=== PATIENT | male | born 2000 | race Caucasian/White ===

== ENCOUNTER 2025-08-05 09:53 | Emergency (ER) | payer OTHER ==
[~2025-08-05] VITALS: Ht 190.5 cm; Wt 97.5 kg
[2025-08-05] MEDS ORDERED: KETOROLAC TROMETHAMINE 15 MG/ML VIAL ONE (10:30)
[2025-08-05] MEDS: IV NS 0.9% 1,000 ML BAG IV ONE (10:37)
[2025-08-05] MEDS: KETOROLAC TROMETHAMINE 15 MG/ML VIAL IV ONE (10:38)
[2025-08-05 10:42] LABS: APPEARANCE,URINE CLEAR (CLEAR); BLOOD, URINE TRACE-INTA Ery/uL (NEGATIVE); LEUKOCYTE ESTERASE ,URINE NEGATIVE (NEGATIVE); NITRITE, URINE NEGATIVE (NEGATIVE); UGLUCOSE NEGATIVE (NEGATIVE)
[2025-08-05 10:44] LABS: PLATELET COUNT (AUTO) 221 K/uL (150-450); RED BLOOD CELL COUNT(AUTO) 4.94 MIL/uL (4.5-6.0); RED CELL DISTRIBUTION WIDTH 13.5 % (11.5-15.0); WHITE BLOOD COUNT (AUTO) 4.2 K/uL (4.3-11.0)
[2025-08-05 10:51] LABS: CALCIUM, SERUM 9.3 mg/dL (8.5-10.1); CREATININE 1.0 mg/dL (0.6-1.3); SODIUM SERUM 140.0 mmol/L (136-145); UREA NITROGEN, BLOOD 10.0 mg/dL (7-18)
[2025-08-05 11:09] LABS: ASPARTATE AMINOTRANSFERASE 31.0 U/L (15-37); TOTAL PROTEIN, SERUM 7.5 g/dL (6.4-8.2)
[2025-08-05 11:19] LABS: ADD URINE CULTURE NO; SQUAMOUS EPITHELIAL CELL,UR None Seen /HPF (None Seen)
[2025-08-05] MEDS ORDERED: ONDA4TAB5 PO (13:56)
[2025-08-05] MEDS ORDERED: IBUP-1490 PO (13:56)
[2025-08-05] MEDS ORDERED: OXYC-128 PO (13:56)
[2025-08-05] MEDS ORDERED: TAMS-12 PO (13:56)
[2025-08-05 14:05] VITALS: BP 132/76; TEMP 98; O2SAT 99
[2025-08-06] MEDS ORDERED: QUET100T PO (15:50)
[2025-08-06] MEDS ORDERED: CHOL200059 PO (15:50)
[2025-08-06] MEDS ORDERED: MIRT-91 PO (15:50)
== END 2025-08-05 14:06 | disposition home or self-care (01) ==
LOC: ER 09:55
DX: N13.2 Hydronephrosis with renal and ureteral calculous obstruction (principal); F31.9 Bipolar disorder, unspecified; Z87.442 Personal history of urinary calculi
CPT/HCPCS: 99285; 74176; 96374; 96361; 85025; 80048; 83690; 80076; 81001; 36415; J1885; J7030

== ENCOUNTER 2025-08-06 12:22 | Inpatient (IN) | payer OTHER ==
[~2025-08-06] VITALS: Ht 183.6 cm; Wt 98.9 kg
[~2025-08-06 12:22] MED LIST: IBUP-1490 PO; ONDA4TAB5 PO; OXYC-128 PO; TAMS-12 PO
[2025-08-06] MEDS ORDERED: KETOROLAC TROMETHAMINE 15 MG/ML VIAL ONE (13:26)
[2025-08-06] MEDS: IV NS 0.9% 1,000 ML BAG IV ONE (13:33)
[2025-08-06] MEDS: KETOROLAC TROMETHAMINE 15 MG/ML VIAL IV ONE (13:35)
[2025-08-06 13:42] LABS: PLATELET COUNT (AUTO) 238 K/uL (150-450); RED BLOOD CELL COUNT(AUTO) 4.53 MIL/uL (4.5-6.0); RED CELL DISTRIBUTION WIDTH 13.3 % (11.5-15.0); WHITE BLOOD COUNT (AUTO) 12.3 K/uL (4.3-11.0)
[2025-08-06 13:50] LABS: CALCIUM, SERUM 9.1 mg/dL (8.5-10.1); CREATININE 1.2 mg/dL (0.6-1.3); SODIUM SERUM 131.0 mmol/L (136-145); UREA NITROGEN, BLOOD 12.0 mg/dL (7-18)
[2025-08-06 14:03] LABS: ASPARTATE AMINOTRANSFERASE 33.0 U/L (15-37); TOTAL PROTEIN, SERUM 7.3 g/dL (6.4-8.2)
[2025-08-06] MEDS ORDERED: TAMSULOSIN 0.4 MG CAP.SR.24H ONE ×2 (14:39→17:06)
[2025-08-06] MEDS ORDERED: ONDANSETRON HCL/PF 4 MG/2 ML VIAL ONE (14:39)
[2025-08-06] MEDS ORDERED: HYDROMORPHONE 1 MG/1 ML DISP.SYRIN ONE ×2 (14:39→19:19)
[2025-08-06 14:52] LABS: APPEARANCE,URINE CLEAR (CLEAR); BLOOD, URINE 2+ Ery/uL (NEGATIVE); LEUKOCYTE ESTERASE ,URINE NEGATIVE (NEGATIVE); NITRITE, URINE NEGATIVE (NEGATIVE); UGLUCOSE NEGATIVE (NEGATIVE)
[2025-08-06] MEDS: HYDROMORPHONE INJ 2 MG/ML DISP.SYRIN IV ONE (14:58)
[2025-08-06] MEDS: TAMSULOSIN 0.4 MG CAP.SR.24H PO ONE ×2 (15:00→16:00)
[2025-08-06] MEDS: ONDANSETRON HCL/PF 4 MG/2 ML VIAL IVP ONE (15:00)
[2025-08-06 15:06] LABS: ADD URINE CULTURE NO
[2025-08-06] MEDS ORDERED: CHOL200059 PO (15:50)
[2025-08-06] MEDS ORDERED: MIRT-91 PO (15:50)
[2025-08-06] MEDS ORDERED: QUET100T PO (15:50)
[2025-08-06] MEDS ORDERED: MAG HYDROX/AL HYDROX/SIMETH 30 ML UDC PO PRN (16:00)
[2025-08-06] MEDS ORDERED: ZOLPIDEM TARTRATE 5 MG TABLET PO PRN (16:00)
[2025-08-06] MEDS ORDERED: ACETAMINOPHEN 325 MG TABLET PO PRN (16:00)
[2025-08-06] MEDS ORDERED: Z GUARD REMEDY 4 OZ OINT TP PRN (16:00)
[2025-08-06] MEDS ORDERED: ONDANSETRON HCL/PF 4 MG/2 ML VIAL IVP PRN (16:00)
[2025-08-06] MEDS ORDERED: KETOROLAC TROMETHAMINE 15 MG/ML VIAL IV PRN (16:00)
[2025-08-06] MEDS ORDERED: MAGNESIUM HYDROXIDE 30 ML UDC PO PRN (16:00)
[2025-08-06] MEDS: HYDROMORPHONE 1 MG/1 ML DISP.SYRIN IV PRN (19:22)
[2025-08-06 20:00] VITALS: BP 128/76; TEMP 98.2; O2SAT 99
[2025-08-06] MEDS: IV NS 0.9% 1,000 ML IV PRN (21:27)
[2025-08-06] MEDS: MIRTAZAPINE 15 MG TABLET PO SCH ×2 (21:44→22:00)
[2025-08-06] MEDS: QUETIAPINE FUMARATE 100 MG TABLET PO SCH ×2 (21:45→22:00)
[2025-08-07] MEDS: HYDROCODONE/APAP 10/325MG TABLET PO PRN (02:18)
[2025-08-07 04:00] VITALS: BP 122/63; TEMP 98.1; O2SAT 99
[2025-08-07 06:18] LABS: PLATELET COUNT (AUTO) 204 K/uL (150-450); RED BLOOD CELL COUNT(AUTO) 4.39 MIL/uL (4.5-6.0); RED CELL DISTRIBUTION WIDTH 13.2 % (11.5-15.0); WHITE BLOOD COUNT (AUTO) 6.4 K/uL (4.3-11.0)
[2025-08-07 06:32] LABS: CALCIUM, SERUM 9.0 mg/dL (8.5-10.1); CREATININE 1.4 mg/dL (0.6-1.3); PHOSPHORUS 3.9 mg/dL (2.5-4.9); SODIUM SERUM 141.0 mmol/L (136-145); UREA NITROGEN, BLOOD 11.0 mg/dL (7-18)
[2025-08-07 08:00] VITALS: BP 104/70; TEMP 98.8; O2SAT 98
[2025-08-07] MEDS: PANTOPRAZOLE 40 MG TABLET.DR PO SCH (08:49)
[2025-08-07 12:00] VITALS: BP 104/70; TEMP 98.8; O2SAT 98
[2025-08-07 14:02] LABS: APPEARANCE,URINE CLEAR (CLEAR); BLOOD, URINE 3+ Ery/uL (NEGATIVE); LEUKOCYTE ESTERASE ,URINE NEGATIVE (NEGATIVE); NITRITE, URINE NEGATIVE (NEGATIVE); UGLUCOSE NEGATIVE (NEGATIVE)
[2025-08-07 14:09] LABS: CREATININE, URINE 25.7 MG/DL (30.0-125.0); URINE SODIUM, RANDOM 57.0 mmol/l (40-220); URINE TOTAL PROTEIN 10.2 mg/dL (0-11.9)
[2025-08-07 15:13] LABS: ADD URINE CULTURE NO; SQUAMOUS EPITHELIAL CELL,UR None Seen /HPF (None Seen)
[2025-08-07 16:00] VITALS: BP 124/78; TEMP 98.4; O2SAT 100
[2025-08-07 20:00] VITALS: BP 118/64; TEMP 97.5; O2SAT 100
[2025-08-08 04:00] VITALS: BP 128/58; TEMP 97.5; O2SAT 100
[2025-08-08 06:54] LABS: PLATELET COUNT (AUTO) 223 K/uL (150-450); RED BLOOD CELL COUNT(AUTO) 4.56 MIL/uL (4.5-6.0); RED CELL DISTRIBUTION WIDTH 13.5 % (11.5-15.0); WHITE BLOOD COUNT (AUTO) 4.9 K/uL (4.3-11.0)
[2025-08-08 06:55] LABS: CREATINE KINASE, TOTAL 141.0 U/L (39-308)
[2025-08-08 06:56] LABS: ASPARTATE AMINOTRANSFERASE 23.0 U/L (15-37); CALCIUM, SERUM 9.2 mg/dL (8.5-10.1); CREATININE 0.9 mg/dL (0.6-1.3); PHOSPHORUS 3.7 mg/dL (2.5-4.9); SODIUM SERUM 142.0 mmol/L (136-145); TOTAL PROTEIN, SERUM 6.8 g/dL (6.4-8.2); UREA NITROGEN, BLOOD 10.0 mg/dL (7-18)
[2025-08-08 08:00] VITALS: BP 117/78; TEMP 98.2; O2SAT 99
[2025-08-08 12:00] VITALS: BP 117/78; TEMP 98.2; O2SAT 99
[2025-08-08] MEDS: FLU VACC 2025-26(6MOS UP) 0.5 ML SYRINGE IM ONE (14:04)
== END 2025-08-08 16:58 | disposition home or self-care (01) | DRG 694 ==
LOC: ER 12:25 → MEDSG1 19:11
PROVIDERS: ADMIT Nurse Practitioner Acute Care; ATTEND Nurse Practitioner Acute Care
DX: N13.2 Hydronephrosis with renal and ureteral calculous obstruction (principal); E87.1 Hypo-osmolality and hyponatremia; N17.0 Acute kidney failure with tubular necrosis; F31.9 Bipolar disorder, unspecified; E66.9 Obesity, unspecified; Z68.29 Body mass index [BMI] 29.0-29.9, adult; D72.829 Elevated white blood cell count, unspecified; E86.0 Dehydration; Z87.442 Personal history of urinary calculi; E86.9 Volume depletion, unspecified
CPT/HCPCS: 36415; 76770-TC; 80048-TC; 80053-TC; 80076-TC; 81001; 82550-TC; 82570-TC; 83735-TC; 84100-TC; 84300-TC; 85025-TC; 87086-TC; A4223; G0378; J1171; J1885; J2405; J7030